=== PATIENT | male | born 1950 | race Caucasian/White ===

== ENCOUNTER → 2021-10-10 | Outpatient (CLI) | payer MEDICARE, OTHER | LOC: LAB FS 10:23 | PROVIDERS: ATTEND Registered Nurse Emergency | DX: N40.1 Benign prostatic hyperplasia with lower urinary tract symptoms (principal) | CPT/HCPCS: 36415; 84153 ==

== ENCOUNTER → 2021-10-23 | Outpatient (CLI) | payer MEDICARE, OTHER ==
[~2021-10-23] VITALS: Ht 182.9 cm; Wt 104.6 kg
[~2021-10-23] MED LIST: APIX5TAB PO; ASPI-1238 PO; ATOR80TA76 PO; CLOP75TA28 PO; DOXA1TAB2 PO; IBUP-2473 PO; ISOS30TA82 PO; MTP25TSR PO; NITR0.4T42 SL; TRZ50T PO
== END | disposition home or self-care (01) ==
LOC: PREOP 05:36
PROVIDERS: ATTEND Surgery
DX: Z01.818 Encounter for other preprocedural examination (principal)

== ENCOUNTER → 2021-10-23 | Outpatient (CLI) | payer MEDICARE, OTHER ==
[2021-10-23 09:08] LABS: BASOPHILS # (AUTO) 0.1 10^3/uL (0.0-0.1); BASOPHILS % (AUTO) 1 % (0-10); EOSINOPHILS # (AUTO) 0.1 10^3/uL (0.0-0.3); EOSINOPHILS % (AUTO) 2 % (0-10); HEMATOCRIT 42 % (40-54); HEMOGLOBIN 14.3 g/dL (13.3-17.7); LYMPHOCYTES # (AUTO) 1.3 10^3/uL (1.0-4.0); LYMPHOCYTES % (AUTO) 21 % (12-44); MEAN CORPUSCULAR HEMOGLOBIN 30 pg (25-34); MEAN CORPUSCULAR HGB CONC 34 g/dL (32-36); MEAN CORPUSCULAR VOLUME 89 fL (80-99); MEAN PLATELET VOLUME 8.9 fL (9.0-12.2); MONOCYTES # (AUTO) 0.7 10^3/uL (0.0-1.0); MONOCYTES % (AUTO) 12 % (0-12); NEUTROPHILS # (AUTO) 3.9 10^3/uL (1.8-7.8); NEUTROPHILS % (AUTO) 64 % (42-75); PLATELET COUNT 206 10^3/uL (130-400); WHITE BLOOD COUNT 6.1 10^3/uL (4.3-11.0)
[2021-10-23 10:26] LABS: CALCIUM 8.9 MG/DL (8.5-10.1); CREATININE SERUM 0.98 MG/DL (0.60-1.30); POTASSIUM 4.3 MMOL/L (3.6-5.0)
== END ==
LOC: LAB FS 08:31
PROVIDERS: ATTEND Internal Medicine Cardiovascular Disease
DX: I25.119 Atherosclerotic heart disease of native coronary artery with unspecified angina pectoris (principal); I48.0 Paroxysmal atrial fibrillation; I10 Essential (primary) hypertension; E78.2 Mixed hyperlipidemia; E66.9 Obesity, unspecified
CPT/HCPCS: 36415; 80048; 85025; 85610

== ENCOUNTER 2021-10-24 11:00 | Day surgery (SDC) | payer MEDICARE, OTHER ==
[~2021-10-24] VITALS: Ht 182 cm; Wt 104.0 kg
--- NOTE | 2021-10-24 10:32 | Pre-Op Note & Conscious Sedat ---
Pre-Operative Progress Note H&P Reviewed The H&P was reviewed, patient examined and no changes noted. Date H&P Reviewed: Oct 24, 2021 Time H&P Reviewed: 10:32 Pre-Op Diagnosis: Coronary artery disease with angina pectoris Conscious Sedation Pre-Proced ASA Score 2 For ASA 3 and 4: Consider anesthesia and medical clearance. Also, for patients with a history of failed moderate sedation consider anesthesia. Airway Lungs Heart ASA score ASA 1: a normal healthy patient ASA 2: a patient with a mild systemic disease (mid diabetes, controlled hypertension, obesity ASA 3: a patient with a severe systemic disease that limits activity (angina, COPD, prior Myocardial infarction) ASA 4: a patient with an incapacitating disease that is a constant threat to life (CHF, renal failure) ASA 5: a moribund patient not expected to survive 24 hrs. (ruptured aneurysm) ASA 6: a declared brain- patient whose organs are being harvested. For emergent operations, add the letter E after the classification Mallampati Classification Grade 2 Sedation Plan Analgesia, Amnesia, Plan communicated to team members, Discussed options with patient/fam, Discussed risks with patient/fam The patient is an appropriate candidate to undergo the planned procedure, sedation, and anesthesia. The patient immediately re-assessed prior to indication. ISAEL NAIDU JR, MD Oct 24, 2021 10:32
[~2021-10-24 11:00] MED LIST changes: +ASPIRIN 81 MG CHEW (CHILDREN'S ASA) ONE; +ASPIRIN 81 MG CHEW (CHILDREN'S ASA) PO ONE; +CATHETER FLUSH 10 ML SYR IV PRN; -CLOP75TA28 PO; +HEParin (CATH LAB) 2,000 ML IV ONE; +LIDOCAINE 1% INJ 20 ML VIAL ONE; -NITR0.4T42 SL; +NS IV 1000 ML 1,000 ML IV ONE; +NS IV 1000 ML 1,000 ML ONE; -TRZ50T PO
[2021-10-24] MEDS ORDERED: HEParin 1000 UNIT/ML (10ML VIAL) FOR BOLUS ONE (12:10)
[2021-10-24] MEDS ORDERED: VERAPAMIL 5 MG/2 ML (CALAN) VIAL IV ONE (12:10)
[2021-10-24] MEDS ORDERED: NITRO DRIP 25000 MCG/D5W 250 ML IV ONE (12:10)
[2021-10-24] MEDS ORDERED: fentaNYL INJ 100 MCG/2 ML AMP ONE (12:10)
[2021-10-24] MEDS ORDERED: MIDAZOLAM 5 MG/5 ML (VERSED) VIAL ONE (12:10)
[2021-10-24] MEDS ORDERED: CLOPIDOGREL 300 MG (PLAVIX) TABLET PO ONE (12:57)
[2021-10-24 13:00] VITALS: BP 116/63
[2021-10-24] MEDS ORDERED: TRZ50T PO (13:04)
[2021-10-24] MEDS ORDERED: NITR0.4T42 SL (13:04)
[2021-10-24] MEDS ORDERED: PATIENT MAY USE OWN MEDS, ALL PO SCH (13:15)
[2021-10-24] MEDS ORDERED: NS IV 1000 ML 1,000 ML IV SCH (13:15)
--- NOTE | 2021-10-24 13:20 | Cardiac Cath Report ---
CARDIAC CATHETERIZATION DATE OF PROCEDURE: 10/24/2021 INDICATION: Coronary artery disease with angina pectoris. HISTORY: The patient is a 71 year old male with known coronary artery disease with previous stents in the left circumflex and an obtuse marginal branch who has been having progressive exertional chest tightness and dyspnea. He is currently on 2 antianginal medications but still has exertional symptoms. As such, he is now referred for further evaluation with a cardiac catheterization. PROCEDURES PERFORMED: 1. Left heart catheterization with hemodynamic measurements. 2. Diagnostic [place] coronary angiography. 3. Drug-eluting stent placement to the distal left anterior descending coronary artery with 1 stent. PROCEDURE DESCRIPTION: After informed consent and in the fasting state, left heart catheterization was performed through the right radial artery utilizing a 6 [place] system by percutaneous approach. A 6 [facility] [place] catheter was utilized for the diagnostic portion of the procedure. A 6 [place] CLS 3.5 guide catheter was utilized for the percutaneous coronary intervention. All catheters were exchanged over a guidewire. Following the procedure, a vascular band was applied to the radial artery access site and the sheath was removed with good hemostasis. RESULTS: HEMODYNAMICS: The aortic pressure was 90/44 mmHg. The left ventricular pressure was 98/0 mmHg with a left ventricular end-diastolic pressure of 10 mmHg. There was no significant pressure gradient upon pullback across the aortic valve. CORONARY ANGIOGRAPHY: Left main coronary artery: Very large in caliber and free of significant disease. All 3 of the major epicardial coronary vessels had slow flow. Left anterior descending coronary artery: There was an 80% stenosis distally just proximal to a previously placed stent. The distal stent was widely patent. The entire vessel had delayed flow. There was a large first diagonal branch which appeared to contain a 70% stenosis in its ostium and also had delayed flow. Left circumflex coronary artery: Very large in caliber and there was a bifurcation stent in the left circumflex coronary artery proper and first obtuse marginal branch which were both patent. There was a 50% stenosis in the first obtuse marginal branch just beyond the stent. Right coronary artery: Dominant and very ectatic with delayed flow to the distal vessel. There was approximately a 70% narrowing in the mid segment but this was between 2 areas of ectasia and may actually have represented normal vessel. PERCUTANEOUS CORONARY INTERVENTION: Percutaneous coronary intervention was carried out on the distal left anterior descending coronary artery through a 6 [place] CLS 3.5 guide catheter. The lesion was successfully crossed with a [employer] guidewire. I subsequently performed coronary angioplasty with a 3 x 15 mm Trek balloon and a pressure of 10 shalonda. I subsequently deployed a 3.5 x 23 mm drug-eluting Xience Skypoint stent at a pressure of 18 shalonda. The distal edge of the stent overlapped the proximal edge of the previously placed stent. Following stent placement, there was 0% residual stenosis with improved but still slow flow throughout the entire vessel. IMPRESSION: 1. Borderline low systemic blood pressure with normal left ventricular end-d iastolic pressure. 2. Patent stents in the distal left anterior descending, left circumflex and first obtuse marginal branches. 3. Status post drug-eluting stent placement to the distal left anterior descending coronary artery with a 3.5 x 23 mm Xience Skypoint stent with 0% residual stenosis. There was still some degree of delayed flow following the stent placement but all 3 coronary arteries had delayed flow. Certain portions of this document may have been dictated utilizing voice recognition technology. Inherent to this technology, typographical and grammatical errors may exist. As much as I am diligent to identify and correct these mistakes, some errors may remain in the document. ISAEL NAIDU JR, MD Oct 24, 2021 13:20
[2021-10-24] MEDS ORDERED: CLOP75TA28 PO (13:22)
[2021-10-24 14:00] VITALS: BP 124/68
[2021-10-24 15:00] VITALS: BP 128/72
[2021-10-24] MEDS ORDERED: ACETAMINOPHEN 500 MG TAB (TYLENOL) PO ONE (15:25)
[2021-10-24] MEDS ORDERED: ACETAMINOPHEN 500 MG TAB (TYLENOL) ONE (15:40)
[2021-10-24 16:00] VITALS: BP 133/70
[2021-10-24 17:00] VITALS: BP 131/67
[2021-10-24] MEDS ORDERED: APIXABAN 5 MG (ELIQUIS) TABLET PO SCH (21:00)
[2021-10-25] MEDS ORDERED: CLOPIDOGREL 75 MG (PLAVIX) TABLET PO SCH (09:00)
== END 2021-10-24 19:00 | disposition home or self-care (01) ==
LOC: CATH 11:00 → ICU 13:39 → CATH 19:00
PROVIDERS: ATTEND Internal Medicine Cardiovascular Disease
DX: I25.119 Atherosclerotic heart disease of native coronary artery with unspecified angina pectoris (principal); I10 Essential (primary) hypertension; I48.0 Paroxysmal atrial fibrillation; D17.1 Benign lipomatous neoplasm of skin and subcutaneous tissue of trunk; E78.2 Mixed hyperlipidemia; E66.9 Obesity, unspecified; Z68.31 Body mass index [BMI] 31.0-31.9, adult; Z79.899 Other long term (current) drug therapy; Z79.01 Long term (current) use of anticoagulants; Z79.82 Long term (current) use of aspirin; Z95.1 Presence of aortocoronary bypass graft
CPT/HCPCS: 87081; 93458; C1725; C1874; C1887; C9600

== ENCOUNTER → 2021-11-21 | Outpatient (CLI) | payer MEDICARE, OTHER ==
[~2021-11-21] MED LIST changes: -ASPIRIN 81 MG CHEW (CHILDREN'S ASA) ONE; -ASPIRIN 81 MG CHEW (CHILDREN'S ASA) PO ONE; -CATHETER FLUSH 10 ML SYR IV PRN; +CLOP75TA28 PO; -HEParin (CATH LAB) 2,000 ML IV ONE; -LIDOCAINE 1% INJ 20 ML VIAL ONE; +NITR0.4T42 SL; -NS IV 1000 ML 1,000 ML IV ONE; -NS IV 1000 ML 1,000 ML ONE; +TRZ50T PO
== END ==
LOC: RAD FS 09:45
PROVIDERS: ATTEND Internal Medicine Cardiovascular Disease
DX: I25.119 Atherosclerotic heart disease of native coronary artery with unspecified angina pectoris (principal); I35.0 Nonrheumatic aortic (valve) stenosis
CPT/HCPCS: 93306; 93325

== ENCOUNTER → 2022-06-04 | Outpatient (CLI) | payer MEDICARE, OTHER ==
[~2022-06-04] MED LIST changes: +RT-ALBUTEROL SULF 2.5 MG/3 ML PRE-MIX VIAL INH ONE
== END ==
LOC: RT 09:15
PROVIDERS: ATTEND Internal Medicine Cardiovascular Disease
DX: R06.00 Dyspnea, unspecified (principal)
CPT/HCPCS: 94060; 94726; 94729

== ENCOUNTER → 2023-01-27 | Outpatient (CLI) | payer MEDICARE, OTHER ==
[~2023-01-27] MED LIST changes: +CATHETER FLUSH 10 ML SYR IVP PRN; +REGADENOSON 0.4 MG/5 ML SYR (LEXISCAN) IV ONE; -RT-ALBUTEROL SULF 2.5 MG/3 ML PRE-MIX VIAL INH ONE
[2023-01-27 13:12] VITALS: BP 164/98
--- NOTE | 2023-01-27 20:36 | STRESS TEST ---
DATE OF SERVICE: 01/27/2023 ECHOCARDIOGRAPHY REPORT ORDERING PHYSICIAN: Dr. Robles. PRIMARY PHYSICIAN: Dr. Albarran. CLINICAL DIAGNOSIS: Coronary artery disease. Baseline images were carried out after injection of 10.98 mCi of technetium-99m tetrofosmin. This was followed by 0.4 mg regadenoson and 32.7 mCi of technetium-99m tetrofosmin for stress imaging. The electrocardiogram showed sinus rhythm at baseline. It did not change significantly with the regadenoson infusion. The patient tolerated the procedure well. Review of images at rest and following stress does not indicate any significant perfusion defects consistent with myocardial ischemia or infarction. Gated images show normal global left ventricular systolic function with normal regional wall motion. Left ventricular ejection fraction is calculated to be 66%. CONCLUSIONS: 1. No evidence of any significant myocardial ischemia or infarction study. 2. Normal regional wall motion. 3. Normal global left ventricular systolic function with a calculated ejection fraction 66%. Job ID: [id number] DocumentID: [id number] Dictated Date: 01/27/2023 16:16:25 [employer] Systems Specialist Date: 01/27/2023 20:34:00 Dictated By: ROBERTO ROBLES MD; MA; FACP; FACC;
== END ==
LOC: CARD 11:48
PROVIDERS: ATTEND Internal Medicine Cardiovascular Disease
DX: I25.10 Atherosclerotic heart disease of native coronary artery without angina pectoris (principal)
CPT/HCPCS: 78452; 93017; A9502